=== PATIENT | female | born 1990 | race Caucasian/White ===

== ENCOUNTER 2017-06-30 15:40 | Emergency (ER) | payer OTHER ==
[~2017-06-30] VITALS: Ht 157.5 cm; Wt 81.6 kg
[~2017-06-30 15:40] MED LIST: ALBUTEROL17 GM INH; BACTRIM DS TABL1 TAB PO; BENZONATATE PO; CIPRO PO; DERMACORT1 GM EXT; IBUPROFEN800 MG PO; KEFLEX PO; MACROBID100 MG PO; MEDROL DOSEPAK4 MG PO; NAPROSYN500 MG PO; PAXIL10 MG PO; PERCOCET5/325 PO; PHENERGAN PR; PROAIR HFA8.5 GM INH; PYRIDIUM PO; ROBITUSSIN A-C S5 ML PO; VIBRAMYCIN100 M1 DOB; VICODIN 5/500 T1 TAB PO; ZANTAC PO; ZITHROMAX PO
[2017-06-30 16:14] LABS: BASOPHIL% 0.5 % (0-2.5); DIFF IND NO; EOSINOPHIL# 0.1 X10e3 (0-0.7); EOSINOPHIL% 0.9 % (0.0-7.0); HEMATOCRIT 38.5 % (35.0-45.0); HEMOGLOBIN 13.1 gm/dL (12.0-16.0); LYMPHOCYTE# 1.8 X10e3 (1.0-3.5); LYMPHOCYTE% 18.7 % (17.0-45.0); MEAN CELL VOLUME 83.3 FL (83-96); MEAN CORPUSCULAR HEMOGLOBIN 28.4 PG (28-34); MEAN CORPUSCULAR HGB CONC 34.1 g/dL (30-36); MEAN PLATELET VOLUME 6.9 FL (6.5-11.5); MONOCYTE# 0.4 X10e3 (0-1.0); NEUTROPHIL# 7.2 X10e3 (1.5-7.1); NEUTROPHIL% 75.9 % (40-75); PLATELET COUNT 323 X10e3 (140-420); RED BLOOD COUNT 4.62 X10e (3.90-5.30); RED CELL DISTRIBUTION WIDTH 14.2 % (11.0-15.5); WHITE BLOOD COUNT 9.5 X10e3 (4.0-10.5)
[2017-06-30 16:40] LABS: ALBUMIN SERUM 4.4 g/dL (3.5-5.0); BILIRUBIN, DIRECT 0.1 mg/dL (0.0-0.2); BILIRUBIN,INDIRECT 0.1 mg/dL (0.0-0.9); BILIRUBIN,TOTAL 0.2 mg/dL (0.2-2.0); BUN/CREATININE RATIO 17.14; CALCIUM SERUM 9.1 mg/dL (8.4-10.2); CREATININE SERUM 0.7 mg/dL (0.6-1.4); GLOM FILT RATE Estimated 119.6 mL/min (>60); POTASSIUM 4.4 mmol/L (3.5-5.1); PROTEIN TOTAL SERUM 7.9 g/dL (6.0-8.3)
[2017-06-30 17:11] LABS: URINE SOURCE CLEAN CATCH
[2017-06-30 17:31] LABS: URINE APPEARANCE CLEAR; URINE BILIRUBIN NEG (NEG); URINE BLOOD 3+ (NEG); URINE COLOR YELLOW; URINE GLUCOSE NEG (NEG); URINE KETONE NEG (NEG); URINE LEUKOCYTE ESTERASE NEG (NEG); URINE NITRATE NEG (NEG); URINE PROTEIN NEG (NEG); URINE SPECIFIC GRAVITY 1.023 (1.003-1.035); URINE UROBILINOGEN 0.2 MG/DL (NEG)
[2017-06-30 17:37] LABS: CULTURE INDICATED? NO; URINE BACTERIA AUWI NEG (NEGATIVE); URINE SQUAMOUS EPITHELIAL CELL OCC /[HPF]; UWBCS1 AUWI 0-2 (0-5)
== END 2017-06-30 19:31 | disposition home or self-care (01) ==
LOC: CED 15:40
DX: F55.2 Abuse of laxatives (principal); R19.7 Diarrhea, unspecified
CPT/HCPCS: 36415; 80048; 80076; 81003; 83690; 84703; 85025; 99284